=== PATIENT | male | born 1960 | race Two or more races ===

== ENCOUNTER 2018-05-09 22:15 | Inpatient (IN) | payer MEDICAID ==
--- NOTE | 2018-05-09 22:28 | ED Physician Chart ---
ED Chief Complaint/HPI - Patient Information Date Seen:: 05/09/18 Time Seen:: 22:22 Chief Complaint:: pneumonia History of Present Illness:: this is a 58 yo male who [facility] evaluation and treatment because he had a chest x-ray results of pneumonia with bilateral pleural effusions. Allergies:: Allergies Allergy/AdvReac Type Severity Reaction Status Date / Time No Known Allergies Allergy Verified 05/09/18 22:16 Vitals:: Vital Signs - 8 hr 05/09/18 22:17 Temp 98.4 F HR 56 RR 12 BP 132/63 O2 Sat % 95 Historian:: Patient, Medical Records Review:: Nurse's Note Reviewed, Transfer documents Reviewed ED Review of Systems - Review of Systems General/Constitutional: No fever, No chills, No weight loss, No weakness, No diaphoresis, No edema, No loss of appetite Skin: No skin lesions, No rash, No bruising Head: No headache, No light-headedness Eyes: No loss of vision, No pain, No diplopia ENT: No earache, No nasal drainage, No sore throat, No tinnitus Neck: No neck pain, No swelling, No thyromegaly, No stiffness, No mass noted Cardio Vascular: No chest pain, No palpitations, No PND, No orthopnea, No edema Pulmonary: SOB, No cough, Sputum, No wheezing GI: No nausea, No vomiting, No diarrhea, No pain, No melena, No hematochezia, No constipation, No hematemesis G/U: No dysuria, No frequency, No hematuria Musculoskeletal: No bone or joint pain, No back pain, No muscle pain Endocrine: No polyuria, No polydipsia Psychiatric: No prior psych history, No depression, No anxiety, No suicidal ideation Hematopoietic: No bruising, No lymphadenopathy Allergic/Immuno: No urticaria, No angioedema Neurological: No syncope, No focal symptoms, No weakness, No paresthesia, No headache, No seizure, No dizziness, No confusion, No vertigo ED Past Medical History - Past Medical History Obtainable: Yes Past Medical History: HTN, DM, ESRD Family History: None Social History: Non Smoker, No Alcohol, No Drug Use, Care Facility Surgical History: CABG, other (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) Psychiatricy History: None Medication: Reviewed Family Medical History - Family Member Mother History Unknown: Yes ED Physical Exam - Physical Examination General/Constitutional: Awake, Well-developed, well-nourished, Alert, No distress, GCS 15, Non-toxic appearing, Ambulatory Head: Atraumatic Eyes: Lids, conjuctiva normal, PERRL, EOMI Skin: Nl inspection, No rash, No skin lesions, No ecchymosis, Well hydrated, No lymphadenopathy ENMT: External ears, nose nl, Nasal exam nl, Lips, teeth, gums nl Neck: Nontender, Full ROM w/o pain, No JVD, No nuchal rigidity, No bruit, No mass, No stridor Respiratory: Nl effort/Exclusion, Clear to Auscultation Other Respiratory comments:: there are decreased breath sounds bilaterally Cardio Vascular: RRR, No murmur, gallop, rubs, NL S1 S2 Other Cardio Vascular comments:: there is a well healed cardiac surgery scare noted in the center of the chest GI: No tenderness/rebounding/guarding, No organomegaly, No hernia, Normal BS's, Nondistended, No mass/bruits, No McBurney tenderness : No CVA tenderness Extremities: No tenderness or effusion, Full ROM, normal strength in all extremities, No edema, Normal digits & nails Other Extremities comments:: the bka stump is well healed, the left foot stump is well healed also. Neuro/Psych: Alert/oriented, DTR's symmetric, Normal sensory exam, Normal motor strength, Judgement/insight normal, Mood normal, Normal gait, No focal deficits Misc: Normal back, No paraspinal tenderness ED Labs/Radiology/EKG Results - Lab Results Results: Abnormal Lab Results 05/09/18 05/09/18 05/09/18 22:40 22:40 22:40 WBC 6.3 RBC 2.96 L Hgb 9.5 L Hct 28.3 L MCV 95.8 MCH 32.0 H MCHC Differential 33.4 RDW 15.6 Plt Count 193 MPV 10.9 Neutrophils % 60.7 Lymphocytes % 18.6 L Monocytes % 10.3 H Eosinophils % 9.5 H Basophils % 0.9 PT 10.3 INR 0.99 PTT (Actin FS) 34.8 Specimen Source Sample Site pH pCO2 pO2 HCO3 Base Excess O2 Saturation Dago Test Vent Rate Inspired O2 Tidal Volume PEEP Pressure (ins/psv/peep) Critical Value Sodium 130 L Potassium 4.5 Chloride 92 L Carbon Dioxide 24.4 Anion Gap 18.1 H BUN 65 H Creatinine 9.9 H* Est GFR ( Amer) 7.0 Est GFR (Non-Af Amer) 5.8 BUN/Creatinine Ratio 6.6 Glucose 204 H Calcium 9.2 Total Bilirubin 0.4 AST 14 ALT 12 Alkaline Phosphatase 95 Troponin I B-Natriuretic Peptide Total Protein 7.8 Albumin 3.8 L Globulin 4.0 Albumin/Globulin Ratio 1.0 05/09/18 05/09/18 05/09/18 22:40 22:40 23:01 WBC RBC Hgb Hct MCV MCH MCHC Differential RDW Plt Count MPV Neutrophils % Lymphocytes % Monocytes % Eosinophils % Basophils % PT INR PTT (Actin FS) Specimen Source ARTERIAL Sample Site Right Radial pH 7.42 pCO2 43.0 pO2 62.0 L HCO3 27.1 H Base Excess 3.0 O2 Saturation 92.0 Dago Test Positive Vent Rate N/A Inspired O2 21 Tidal Volume N/A PEEP N/A Pressure (ins/psv/peep) N/A Critical Value MM,MARINE SPECIALIST Sodium Potassium Chloride Carbon Dioxide Anion Gap BUN Creatinine Est GFR ( Amer) Est GFR (Non-Af Amer) BUN/Creatinine Ratio Glucose Calcium Total Bilirubin AST ALT Alkaline Phosphatase Troponin I 0.96 H* B-Natriuretic Peptide 4390.0 H Total Protein Albumin Globulin Albumin/Globulin Ratio - EKG Interpretations EKG Time:: 22:39 Rate & Rhythm: RATE =55 SINUS [place]: RIGHT Comments:: NO ECTOPY ED Assessment - Assessment General Assessment: pneumonia ESRD CAD DIABETES MELLITUS ED Septic Shock - . Is Septic Shock (SBP<90, OR Lactate>4 mmol\L) present?: No - <6hrs of presentation: Vital Signs: Vital Signs - 8 hr 05/09/18 22:17 Temp 98.4 F HR 56 RR 12 BP 132/63 O2 Sat % 95 ED Reassessment (Disposition) - Reassessment Reassessment Condition:: Improved - Diagnosis Diagnosis:: PNEUMONIA ESRD DIABETES ELEVATED TROPONIN - Patient Disposition Discharge/Transfer:: Acute Care w/in this hosp Admitting Medical Physician:: Adilene Cordon Condition at Disposition:: Improved
[2018-05-09 22:50] LABS: % BASOPHILS 0.9 % (0.0-2.0); % EOSINOPHILS 9.5 % (0.0-5.0); % LYMPHOCYTES 18.6 % (20.0-50.0); % MONOCYTES 10.3 % (2.0-10.0); % NEUTROPHILS 60.7 % (40.0-80.0); BASOPHILE ABSOLUTE 0.1 Th/cumm (0-0.2); EOSINOPHILE ABSOLUTE 0.6 Th/cmm (0.1-0.4); HEMATOCRIT 28.3 % (41.0-60); HEMOGLOBIN 9.5 gm/dL (12-16); LYMPHOCYTE ABSOLUTE 1.2 Th/cmm (1.5-3.0); MEAN CELL VOLUME 95.8 fl (80-99); MEAN CORPUSCULAR HGB CONC 33.4 pg (28.0-36.0); MEAN PLATELET VOLUME 10.9 fl; MONOCYTE ABSOLUTE 0.6 Th/cmm (0.3-1.0); NEUTROPHILE ABSOLUTE 3.8 Th/cmm (1.8-8.0); PLATELET COUNT 193 Th/cmm (150-400); RED BLOOD COUNT 2.96 Mil/cmm (4.30-5.70); RED CELL DISTRIBUTION WIDTH 15.6 % (11.5-20.0); WHITE BLOOD COUNT 6.3 Th/cmm (4.8-10.8)
[2018-05-09 22:57] LABS: INR 0.99 (0.5-1.4); PROTHROMBIN TIME (TEST) 10.3 SECONDS (9.5-11.5)
[2018-05-09 23:03] LABS: ALBUMIN 3.8 gm/dL (4.2-5.5); ANION GAP 18.1 (7.0-16.0); BILIRUBIN,TOTAL 0.4 mg/dL (0.3-1.0); CALCIUM SERUM 9.2 mg/dL (8.6-10.3); CARBON DIOXIDE 24.4 mEq/L (21.0-31.0); GFR NON AFRICAN-AMERICAN 5.8 ml/min; POTASSIUM SERUM 4.5 mEq/L (3.5-5.1); TOTAL PROTEIN,SERUM 7.8 gm/dL (6.0-8.3)
[2018-05-09 23:14] LABS: ALLEN TEST Positive; pH 7.42 (7.35-7.45)
[2018-05-09 23:28] LABS: CREATININE - SERUM 9.9 mg/dL (0.7-1.3)
[2018-05-10] MEDS ORDERED: D5-0.9%NS 1,000 ML IV SCH (01:22)
[2018-05-10 01:24] VITALS: BP 139/70
[2018-05-10] MEDS: Azithromycin 500 MG in Sodium Chloride 0.9% 250 ML IV SCH ×2 (02:08→21:00)
[2018-05-10 06:26] LABS: % BASOPHILS 0.4 % (0.0-2.0); % LYMPHOCYTES 23.9 % (20.0-50.0); % MONOCYTES 11.1 % (2.0-10.0); % NEUTROPHILS 53.6 % (40.0-80.0); EOSINOPHILE ABSOLUTE 0.6 Th/cmm (0.1-0.4); HEMATOCRIT 27.7 % (41.0-60); HEMOGLOBIN 9.2 gm/dL (12-16); LYMPHOCYTE ABSOLUTE 1.3 Th/cmm (1.5-3.0); MEAN CELL VOLUME 96.3 fl (80-99); MEAN CORPUSCULAR HEMOGLOBIN 31.8 pg (26.0-30.0); MEAN CORPUSCULAR HGB CONC 33.1 pg (28.0-36.0); MEAN PLATELET VOLUME 10.5 fl; MONOCYTE ABSOLUTE 0.6 Th/cmm (0.3-1.0); NEUTROPHILE ABSOLUTE 3.1 Th/cmm (1.8-8.0); PLATELET COUNT 181 Th/cmm (150-400); RED BLOOD COUNT 2.87 Mil/cmm (4.30-5.70); RED CELL DISTRIBUTION WIDTH 15.1 % (11.5-20.0); WHITE BLOOD COUNT 5.6 Th/cmm (4.8-10.8)
[2018-05-10] MEDS: INSULIN ASPART SLIDING SCALE 100 UNITS/ML UNIT SUBQ SCH ×4 (06:44→21:41)
[2018-05-10 06:45] LABS: ANION GAP 15.8 (7.0-16.0); CALCIUM SERUM 9.1 mg/dL (8.6-10.3); CARBON DIOXIDE 25.3 mEq/L (21.0-31.0); GFR AFRICAN-AMERICAN 6.9 ml/min (>90); GFR NON AFRICAN-AMERICAN 5.7 ml/min; POTASSIUM SERUM 4.1 mEq/L (3.5-5.1)
[2018-05-10 06:50] LABS: CREATININE - SERUM 10.1 mg/dL (0.7-1.3)
[2018-05-10] MEDS ORDERED: Fluticasone Propionate Nasal 1 SPR SPR NS PRN (12:19)
[2018-05-10] MEDS ORDERED: Non-Formulary Item 1 EA (Dextran 70/Hypromellose [Artificial Tears] 1 EACH) OP PRN (12:19)
--- NOTE | 2018-05-10 16:00 | Consultation ---
Consult Note - Consult Note Service Date: 05/10/18 Referring Physician: Camilla Cordon Consult Note: PHYSICIAN Consultation Note: Date of Admission: 05/10/18 Purpose of Consultation: esrd Chief Complaint: shortness of breath History of Present Illness: Patient FARHAT FREGOSO was admitted to [facility] with PNEUMONIA,BILATERAL. Past Medical History: Hep B ESRD HTN DM Type 2 NEUROPATHY Allergies Allergy/AdvReac Type Severity Reaction Status Date / Time No Known Allergies Allergy Verified 05/09/18 22:16 Vital Signs Temp 96.6 F 05/10/18 15:44 Pulse 53 05/10/18 15:44 Resp 18 05/10/18 15:44 BP 119/59 05/10/18 15:44 Pulse Ox 100 05/10/18 15:44 Intake & Output 05/09/18 05/10/18 05/10/18 18:59 06:59 18:59 Intake Total 370 Balance 370 Weight (lbs) 59.466 kg Intake: Intake, IV Amount 250 Azithromycin 500 mg In 250 Sodium Chloride 0.9% 250 ml @ 250 mls/hr IV HS [facility] Rx#:[id number] Oral 120 Other: Weight Source [facility] Laboratory Results - last 24 hr 05/09/18 05/09/18 05/09/18 22:40 22:40 22:40 WBC 6.3 RBC 2.96 L Hgb 9.5 L Hct 28.3 L MCV 95.8 MCH 32.0 H MCHC Differential 33.4 RDW 15.6 Plt Count 193 MPV 10.9 Neutrophils % 60.7 Lymphocytes % 18.6 L Monocytes % 10.3 H Eosinophils % 9.5 H Basophils % 0.9 PT 10.3 INR 0.99 PTT (Actin FS) 34.8 Specimen Source Sample Site pH pCO2 pO2 HCO3 Base Excess O2 Saturation Dago Test Vent Rate Inspired O2 Tidal Volume PEEP Pressure (ins/psv/peep) Critical Value Sodium 130 L Potassium 4.5 Chloride 92 L Carbon Dioxide 24.4 Anion Gap 18.1 H BUN 65 H Creatinine 9.9 H* Est GFR ( Amer) 7.0 Est GFR (Non-Af Amer) 5.8 BUN/Creatinine Ratio 6.6 Glucose 204 H POC Glucose Calcium 9.2 Total Bilirubin 0.4 AST 14 ALT 12 Alkaline Phosphatase 95 Troponin I B-Natriuretic Peptide Total Protein 7.8 Albumin 3.8 L Globulin 4.0 Albumin/Globulin Ratio 1.0 05/09/18 05/09/18 05/09/18 22:40 22:40 23:01 WBC RBC Hgb Hct MCV MCH MCHC Differential RDW Plt Count MPV Neutrophils % Lymphocytes % Monocytes % Eosinophils % Basophils % PT INR PTT (Actin FS) Specimen Source ARTERIAL Sample Site Right Radial pH 7.42 pCO2 43.0 pO2 62.0 L HCO3 27.1 H Base Excess 3.0 O2 Saturation 92.0 Dago Test Positive Vent Rate N/A Inspired O2 21 Tidal Volume N/A PEEP N/A Pressure (ins/psv/peep) N/A Critical Value MM,STABLE HAND Sodium Potassium Chloride Carbon Dioxide Anion Gap BUN Creatinine Est GFR ( Amer) Est GFR (Non-Af Amer) BUN/Creatinine Ratio Glucose POC Glucose Calcium Total Bilirubin AST ALT Alkaline Phosphatase Troponin I 0.96 H* B-Natriuretic Peptide 4390.0 H Total Protein Albumin Globulin Albumin/Globulin Ratio 05/10/18 05/10/18 05/10/18 05:47 06:20 06:20 WBC 5.6 RBC 2.87 L Hgb 9.2 L Hct 27.7 L MCV 96.3 MCH 31.8 H MCHC Differential 33.1 RDW 15.1 Plt Count 181 MPV 10.5 Neutrophils % 53.6 Lymphocytes % 23.9 Monocytes % 11.1 H Eosinophils % 11.0 H Basophils % 0.4 PT INR PTT (Actin FS) Specimen Source Sample Site pH pCO2 pO2 HCO3 Base Excess O2 Saturation Dago Test Vent Rate Inspired O2 Tidal Volume PEEP Pressure (ins/psv/peep) Critical Value Sodium 132 L Potassium 4.1 Chloride 95 L Carbon Dioxide 25.3 Anion Gap 15.8 BUN 71 H Creatinine 10.1 H* Est GFR ( Amer) 6.9 Est GFR (Non-Af Amer) 5.7 BUN/Creatinine Ratio 7.0 Glucose 135 H POC Glucose 138 H Calcium 9.1 Total Bilirubin AST ALT Alkaline Phosphatase Troponin I B-Natriuretic Peptide Total Protein Albumin Globulin Albumin/Globulin Ratio 05/10/18 12:15 WBC RBC Hgb Hct MCV MCH MCHC Differential RDW Plt Count MPV Neutrophils % Lymphocytes % Monocytes % Eosinophils % Basophils % PT INR PTT (Actin FS) Specimen Source Sample Site pH pCO2 pO2 HCO3 Base Excess O2 Saturation Dago Test Vent Rate Inspired O2 Tidal Volume PEEP Pressure (ins/psv/peep) Critical Value Sodium Potassium Chloride Carbon Dioxide Anion Gap BUN Creatinine Est GFR ( Amer) Est GFR (Non-Af Amer) BUN/Creatinine Ratio Glucose POC Glucose 165 H Calcium Total Bilirubin AST ALT Alkaline Phosphatase Troponin I B-Natriuretic Peptide Total Protein Albumin Globulin Albumin/Globulin Ratio Home Medication Medication Instructions Recorded Type Amlodipine Besylate 10 mg PO DAILY 05/09/18 History Aspirin [Aspirin Chewable] 81 mg PO DAILY 05/09/18 History Calcium Acetate [Phoslo] 667 mg PO TID 05/09/18 History Dextran 70/Hypromellose 1 each OP Q4H PRN 05/09/18 History [Artificial Tears] Epoetin Leopoldo [Epogen*] 10,000 unit IJ MWF 05/09/18 History Famotidine 20 mg PO DAILY 05/09/18 History Fluticasone Propionate Nasal 1 spr NS BID PRN 05/09/18 History [Flonase] Folic Acid/Vit Bcomp,C 0.8 mg PO DAILY 05/09/18 History [Nephro-Devorah Tablet] Gabapentin [Neurontin*] 300 mg PO TID 05/09/18 History Hydralazine HCl 25 mg PO DAILY 05/09/18 History Insulin Human Regular [NovoLIN R] See Protocol SUBQ ACHS 05/09/18 History Latanoprost/Pf [Latanoprost 0.005% 1 drop EACH EYE HS 05/09/18 History Eye Drop] Metoprolol Tartrate [Lopressor] 25 mg PO BID 05/09/18 History Nitroglycerin [Nitrostat*] 0.4 mg SL [id number] PRN 05/09/18 History Simvastatin [Zocor*] 20 mg PO HS 05/09/18 History Current Medications Generic Name Dose Route Start Last Admin Trade Name Freq PRN Reason Stop Dose Admin Acetaminophen 650 mg 05/10/18 12:22 05/10/18 13:46 Tylenol PO 07/09/18 12:21 650 mg Q4H PRN Administration Pain (Mild) Amlodipine Besylate 10 mg 05/11/18 09:00 Norvasc PO 07/10/18 08:59 DAILY [facility] Aspirin 81 mg 05/11/18 09:00 Aspirin Chewable PO 07/10/18 08:59 DAILY [facility] Calcium Acetate 667 mg 05/10/18 14:00 05/10/18 13:46 Phoslo PO 07/09/18 13:59 667 mg TID [facility] Administration Epoetin Leopoldo 10,000 units 05/11/18 09:00 Epogen SUBQ 07/10/18 08:59 MWF [facility] Famotidine 20 mg 05/11/18 09:00 Pepcid PO 07/10/18 08:59 DAILY [facility] Fluticasone Propionate 1 spr 05/10/18 12:19 Flonase NS 07/09/18 12:18 BID PRN allergic rhinitis Gabapentin 300 mg 05/10/18 14:00 05/10/18 13:46 Neurontin PO 07/09/18 13:59 300 mg TID [facility] Administration Hydralazine HCl 25 mg 05/11/18 09:00 Apresoline PO 07/10/18 08:59 DAILY [facility] Azithromycin 500 mg/ Sodium 250 mls @ 250 mls/hr 05/10/18 02:00 05/10/18 03: 08 Chloride IV 07/09/18 01:59 Infused HS [facility] Infusion Insulin Aspart 0 units 05/10/18 16:30 Novolog Insulin Sliding Scale SUBQ 07/09/18 16:29 ACHS [facility] Protocol Metoprolol Tartrate 25 mg 05/10/18 17:00 Lopressor PO 07/09/18 16:59 BID [facility] Miscellaneous 1 each 05/10/18 12:19 Dextran 70/Hypromellose [Artificial Tears] OP Q4H PRN dry eyes Miscellaneous 1 drop 05/10/18 21:00 Latanoprost/Pf [Latanoprost 0.005% Eye Drop] EACH EYE 07/09/18 20:59 HS [facility] Nitroglycerin 0.4 mg 05/10/18 12:19 Nitrostat SL 07/09/18 12:18 UD PRN Chest Pain Simvastatin 20 mg 05/10/18 21:00 Zocor PO 07/09/18 20:59 HS [facility] Protocol Vitamin B Complex/Vit C/Folic Acid 1 tab 05/11/18 09:00 Vitamin B Complex W/Vitamin C PO 07/10/18 08:59 DAILY [facility] Review of Systems: A 12 point ROS was reviewed with the pertinent positive and negatives noted in the HPI. Social History Smoking Status Never smoker Drug Use No Alcohol Use No Family Medical History Family Medical History Start: 05/10/18 00: 39 Freq: ONCE Status: Active Protocol: Document 05/10/18 01:28 PAULO (Rec: 05/10/18 01:29 PAULO [id number]) Family Medical History Mother History Unknown Yes Ethnicity Physical Exam: General: AAOx3 HEENT: ANTONINO EOMI Neck: SUPPLE NO JVD Cardio: S1S2 RRR Respiratory: B/L RHONCHI Abdominal: SOFT NON TENDENR Extremities: B/L AMPUTATION OF FEET Neurological: NO FOCAL DEFICIT Assessment: B/L PNEUMONIA ESRD HEP B HTN DM TYPE 2 PVD ANEMIA NEUROPATHY Plan: IV ABX ESRD Signed, Eris Campos M.D. [id number]
[2018-05-10] MEDS: Albuterol/Ipratropium Neb 3 ML AERS HHN SCH (19:07)
[2018-05-10] MEDS ORDERED: Non-Formulary Item 1 EA (Latanoprost/Pf [Latanoprost 0.005% Eye Drop] 1 DROP) EACH EYE SCH (21:00)
[2018-05-11] MEDS ORDERED: Polyvinyl Alcohol Ophth Soln 15 mL Bottle EACH EYE PRN (00:18)
[2018-05-11 05:31] LABS: % BASOPHILS 0.3 % (0.0-2.0); % EOSINOPHILS 9.3 % (0.0-5.0); % LYMPHOCYTES 20.5 % (20.0-50.0); % NEUTROPHILS 55.9 % (40.0-80.0); EOSINOPHILE ABSOLUTE 0.4 Th/cmm (0.1-0.4); HEMATOCRIT 26.1 % (41.0-60); HEMOGLOBIN 8.6 gm/dL (12-16); LYMPHOCYTE ABSOLUTE 0.9 Th/cmm (1.5-3.0); MEAN CELL VOLUME 96.8 fl (80-99); MEAN CORPUSCULAR HEMOGLOBIN 31.7 pg (26.0-30.0); MEAN CORPUSCULAR HGB CONC 32.8 pg (28.0-36.0); MEAN PLATELET VOLUME 9.6 fl; MONOCYTE ABSOLUTE 0.6 Th/cmm (0.3-1.0); NEUTROPHILE ABSOLUTE 2.4 Th/cmm (1.8-8.0); PLATELET COUNT 177 Th/cmm (150-400); RED CELL DISTRIBUTION WIDTH 15.6 % (11.5-20.0); WHITE BLOOD COUNT 4.3 Th/cmm (4.8-10.8)
[2018-05-11 06:01] LABS: ALB/GLOB RATIO 1.1 (1.0-1.8); ALBUMIN 3.7 gm/dL (4.2-5.5); ANION GAP 11.3 (7.0-16.0); BILIRUBIN,TOTAL 0.5 mg/dL (0.3-1.0); CALCIUM SERUM 9.4 mg/dL (8.6-10.3); CARBON DIOXIDE 29.7 mEq/L (21.0-31.0); GFR AFRICAN-AMERICAN 11.4 ml/min (>90); GFR NON AFRICAN-AMERICAN 9.4 ml/min; TOTAL PROTEIN,SERUM 7.1 gm/dL (6.0-8.3)
[2018-05-11 06:11] LABS: CREATININE - SERUM 6.5 mg/dL (0.7-1.3)
[2018-05-11] MEDS: INSULIN ASPART SLIDING SCALE 100 UNITS/ML UNIT SUBQ SCH ×3 (06:39→18:03)
[2018-05-11] MEDS: Albuterol/Ipratropium Neb 3 ML AERS HHN SCH ×3 (06:58→19:08)
[2018-05-11] MEDS: Aspirin 81mg Chewable Tab PO SCH (08:52)
[2018-05-11] MEDS: Vitamin B Complex w/Vitamin C Tab PO SCH (08:52)
[2018-05-11] MEDS ORDERED: INSULIN ASPART SLIDING SCALE 100 UNITS/ML UNIT SUBQ SCH (09:00)
--- NOTE | 2018-05-11 10:11 | Diagnostic Imaging Report ---
CHEST X-RAY: AP view INDICATION: Shortness of breath COMPARISON: None FINDINGS: Congestive changes are seen with bilateral effusions and bibasal infiltrates. Cardiomegaly is noted. There is evidence of prior median sternotomy. Right dialysis catheter is noted with tip in the cavoatrial junction. Degenerative changes of the spine are noted. IMPRESSION: Congestive changes with bilateral effusions and bibasal infiltrates. Pneumonia of the lung bases cannot be excluded. Cardiomegaly and atherosclerotic vascular disease. Postsurgical changes and evidence of previous dialysis catheter placement.
--- NOTE | 2018-05-11 12:10 | General Progress Note ---
Subjective - Review of Systems Service Date: 05/11/18 Events since last encounter: s/p hd yesterday Subjective: HD in am Objective - Results Result Diagrams: 05/11/18 05:24 05/11/18 05:24 Recent Labs: Laboratory Last Values WBC 4.3 Th/cmm (4.8-10.8) L 05/11/18 05:24 RBC 2.70 Mil/cmm (4.30-5.70) L 05/11/18 05:24 Hgb 8.6 gm/dL (12-16) L 05/11/18 05:24 Hct 26.1 % (41.0-60) L 05/11/18 05:24 MCV 96.8 fl (80-99) 05/11/18 05:24 MCH 31.7 pg (26.0-30.0) H 05/11/18 05:24 MCHC Differential 32.8 pg (28.0-36.0) 05/11/18 05:24 RDW 15.6 % (11.5-20.0) 05/11/18 05:24 Plt Count 177 Th/cmm (150-400) 05/11/18 05:24 MPV 9.6 fl 05/11/18 05:24 Neutrophils % 55.9 % (40.0-80.0) 05/11/18 05:24 Lymphocytes % 20.5 % (20.0-50.0) 05/11/18 05:24 Monocytes % 14.0 % (2.0-10.0) H 05/11/18 05:24 Eosinophils % 9.3 % (0.0-5.0) H 05/11/18 05:24 Basophils % 0.3 % (0.0-2.0) 05/11/18 05:24 PT 10.3 SECONDS (9.5-11.5) 05/09/18 22:40 INR 0.99 (0.5-1.4) 05/09/18 22:40 PTT (Actin FS) 34.8 SECONDS (26.0-38.0) 05/09/18 22:40 Specimen Source ARTERIAL 05/09/18 23:01 Sample Site Right Radial 05/09/18 23:01 pH 7.42 (7.35-7.45) 05/09/18 23:01 pCO2 43.0 mmHg (35.0-45.0) 05/09/18 23:01 pO2 62.0 mmHg (80.0-100.0) L 05/09/18 23:01 HCO3 27.1 mEq/L (20.0-26.0) H 05/09/18 23:01 Base Excess 3.0 mEq/L (-3.0-3.0) 05/09/18 23:01 O2 Saturation 92.0 % (92.0-100.0) 05/09/18 23: Dago Test Positive 05/09/18 23: Vent Rate N/A 05/09/18 23:01 Inspired O2 21 05/09/18 23:01 Tidal Volume N/A 05/09/18 23:01 PEEP N/A 05/09/18 23: Pressure (ins/psv/peep) N/A 05/09/18 23:01 Critical Value MM,MONTESSORI [employer] 05/09/18 23:01 Sodium 136 mEq/L (136-145) 05/11/18 05:24 Potassium 4.0 mEq/L (3.5-5.1) 05/11/18 05:24 Chloride 99 mEq/L (98-107) 05/11/18 05:24 Carbon Dioxide 29.7 mEq/L (21.0-31.0) 05/11/18 05:24 Anion Gap 11.3 (7.0-16.0) 05/11/18 05:24 BUN 34 mg/dL (7-25) H 05/11/18 05:24 Creatinine 6.5 mg/dL (0.7-1.3) H* 05/11/18 05:24 Est GFR ( Amer) 11.4 ml/min (>90) 05/11/18 05:24 Est GFR (Non-Af Amer) 9.4 ml/min 05/11/18 05:24 BUN/Creatinine Ratio 5.2 05/11/18 05:24 Glucose 112 mg/dL (70-105) H 05/11/18 05:24 POC Glucose 226 MG/DL (70 - 105) H 05/10/18 21:39 Calcium 9.4 mg/dL (8.6-10.3) 05/11/18 05:24 Total Bilirubin 0.5 mg/dL (0.3-1.0) 05/11/18 05:24 AST 12 U/L (13-39) L 05/11/18 05:24 ALT 10 U/L (7-52) 05/11/18 05:24 Alkaline Phosphatase 75 U/L (34-104) 05/11/18 05:24 Troponin I 0.59 ng/mL (0.01-0.05) H* D 05/11/18 05:24 B-Natriuretic Peptide 4390.0 pg/mL (5.0-100.0) H 05/09/18 22:40 Total Protein 7.1 gm/dL (6.0-8.3) 05/11/18 05:24 Albumin 3.7 gm/dL (4.2-5.5) L 05/11/18 05:24 Globulin 3.4 gm/dL 05/11/18 05:24 Albumin/Globulin Ratio 1.1 (1.0-1.8) 05/11/18 05:24 - Physical Exam Vitals and I&O: Vital Signs Temp 97.7 F 05/11/18 11:52 Pulse 87 05/11/18 11:52 Resp 18 05/11/18 11:52 BP 124/65 05/11/18 11:52 Pulse Ox 100 05/11/18 11:52 Intake & Output 05/10/18 05/11/18 05/11/18 18:59 06:59 18:59 Intake Total 150 370 Balance 150 370 Weight (lbs) 59.421 kg 59.421 kg Intake: Intake, IV Amount 250 Azithromycin 500 mg In 250 Sodium Chloride 0.9% 250 ml @ 250 mls/hr IV HS [facility] Rx#:[id number] Oral 150 120 Other: # Voids 0 # Bowel Movements 0 Weight Source Bedscale Bedscale Active Medications: Current Medications Acetaminophen (Tylenol) 650 mg PO Q4H PRN PRN Reason: Pain (Mild) Stop: 07/09/18 12:21 Last Admin: 05/11/18 09:10 Dose: 650 mg Acetaminophen/Hydrocodone Bitart (Hannibal 5mg/325mg) 1 tab PO Q6H PRN PRN Reason: Pain (Severe) Stop: 07/10/18 11:55 Albuterol/Ipratropium (Duoneb Neb) 3 ml HHN [id number] [facility] Stop: 07/09/18 18:59 Last Admin: 05/11/18 06:58 Dose: 3 ml Amlodipine Besylate (Norvasc) 10 mg PO DAILY [facility] Stop: 07/10/18 08:59 Last Admin: 05/11/18 08:52 Dose: 10 mg Artificial Tears (Artificial Tears Ophth Soln) 1 drop EACH EYE Q4H PRN PRN Reason: Dry Eye Stop: 07/10/18 00:17 Aspirin (Aspirin Chewable) 81 mg PO DAILY [facility] Stop: 07/10/18 08:59 Last Admin: 05/11/18 08:52 Dose: 81 mg Calcium Acetate (Phoslo) 667 mg PO TID [facility] Stop: 07/09/18 13:59 Last Admin: 05/11/18 08:52 Dose: 667 mg Epoetin Leopoldo (Epogen) 10,000 units SUBQ MWF@1500 [facility] Stop: 07/10/18 14:59 Epoetin Leopoldo (Epogen) 10,000 units SUBQ MWF@1500 [facility] Stop: 07/12/18 14:59 Famotidine (Pepcid) 20 mg PO DAILY [facility] Stop: 07/10/18 08:59 Last Admin: 05/11/18 08:52 Dose: 20 mg Fluticasone Propionate (Flonase) 1 spr NS BID PRN PRN Reason: allergic rhinitis Stop: 07/09/18 12:18 Gabapentin (Neurontin) 300 mg PO TID [facility] Stop: 07/09/18 13:59 Last Admin: 05/11/18 08:52 Dose: 300 mg Hydralazine HCl (Apresoline) 25 mg PO DAILY [facility] Stop: 07/10/18 08:59 Last Admin: 05/11/18 08:52 Dose: 25 mg Azithromycin 500 mg/ Sodium (Chloride) 250 mls @ 250 mls/hr IV HS [facility] Stop: 07/09/18 01:59 Last Infusion: 05/10/18 22:00 Dose: Infused Insulin Aspart (Novolog Insulin Sliding Scale) 0 units SUBQ BIDAC@0600,1700 [facility] ; Protocol Stop: 07/10/18 08:59 Last Admin: 05/11/18 08:51 Dose: Not Given Latanoprost (Xalatan 0.005% Ophth Soln) 1 drop EACH EYE HS [facility] Stop: 07/10/18 20:59 Metoprolol Tartrate (Lopressor) 25 mg PO BID [facility] Stop: 07/09/18 16:59 Last Admin: 05/11/18 08:53 Dose: 25 mg Nitroglycerin (Nitrostat) 0.4 mg SL UD PRN PRN Reason: Chest Pain Stop: 07/09/18 12:18 Simvastatin (Zocor) 20 mg PO HS [facility]; Protocol Stop: 07/09/18 20:59 Last Admin: 05/10/18 20:59 Dose: 20 mg Vitamin B Complex/Vit C/Folic Acid (Vitamin B Complex W/Vitamin C) 1 tab PO DAILY [facility] Stop: 07/10/18 08:59 Last Admin: 05/11/18 08:52 Dose: 1 tab General: Alert, Oriented x3 HEENT: Atraumatic, PERRLA Neck: Supple Cardiovascular: Regular rate, Normal S1, Normal S2 Lungs: Other Abdomen: Bowel sounds, Soft Extremities: no Clubbing, no Cyanosis, no Edema, no Pulses, no Tender, no Other Assessment/Plan - Assessment Assessment: shortness of breath ESRD volume over load HTN DM type 2 Anemia - Plan Plan: plan for HD in am
[2018-05-11] MEDS: Hydrocodone/APAP 5mg/325mg Tab PO PRN ×2 (12:30→21:16)
[2018-05-11] MEDS ORDERED: Epoetin Alfa 20000 Units/mL Vial SUBQ SCH (15:00)
--- NOTE | 2018-05-11 15:03 | Consultation ---
DATE OF CONSULTATION: 05/10/2018 Thank you very much, Dr. Cordon for this consultation. HISTORY OF PRESENT ILLNESS: This 58-year-old male with history of end-stage renal disease, peripheral vascular disease, presented with pneumonia. Apparently, had a chest x-ray, shows infiltrates, was admitted for treatment and management. The patient is having some cough and congestion, but no shortness of breath, no chest pain. PAST MEDICAL HISTORY: History of end-stage renal disease, on dialysis; hypertension, neuropathy, diabetes mellitus, bilateral amputation left below knee, right above knee. SOCIAL HISTORY: No history of smoking, drinking, drug use. REVIEW OF SYSTEMS: GENERAL: No weakness, no fatigue. CARDIOVASCULAR: No chest pain or palpitations. RESPIRATORY: Some cough. No shortness of breath. GASTROINTESTINAL: No nausea or vomiting. PHYSICAL EXAMINATION: GENERAL: Awake, alert, not in acute distress. VITAL SIGNS: Temperature 96.6, pulse 53, respiration is 18, blood pressure 119/59, saturation is 100%. HEENT: Atraumatic, normocephalic. Pupils react to light and accommodation. Ears, nose and throat normal. NECK: Supple. No JVD. CHEST: There are a few rhonchi in bases: Fair entry bilaterally. HEART: Regular rate and rhythm. ABDOMEN: Soft. EXTREMITIES: No edema. LABORATORY DATA: WBC is 5.6, hemoglobin 9.2, hematocrit 27.7, platelets 181. ABGs: pH 7.742, pCO2 of 43, pO2 of 62, bicarbonate 27, saturation 93%. Sodium 130, potassium 4.1, BUN is 71, creatinine 10.1. Troponin was 0.96. BNP is 4390. Chest x-ray apparently from the nursing was showing bilateral effusion and infiltrate. IMPRESSION: This is a 58-year-old male with; 1. Pneumonia. 2. Pulmonary edema with bilateral effusion secondary to fluid overload. 3. End-stage renal disease, on dialysis. PLAN: 1. We will continue IV antibiotics. 2. Oxygen supplementation. 3. Nebulizer treatment. 4. Hemodialysis and followup chest x-ray. I will follow the patient with you. Thank you very much for this consultation. JOB# [id number]
[2018-05-11] MEDS: cefTRIAXone 1 GM in Sodium Chloride 0.9% 50 ML IV SCH (17:39)
[2018-05-11] MEDS: Azithromycin 500 MG in Sodium Chloride 0.9% 250 ML IV SCH (21:12)
[2018-05-12] MEDS: INSULIN ASPART SLIDING SCALE 100 UNITS/ML UNIT SUBQ SCH ×2 (06:39→17:11)
[2018-05-12] MEDS: Albuterol/Ipratropium Neb 3 ML AERS HHN SCH ×3 (07:31→19:01)
--- NOTE | 2018-05-12 08:51 | General Progress Note ---
Subjective - Review of Systems Service Date: 05/12/18 Subjective: pt feeling ok Objective - Results Result Diagrams: 05/11/18 05:24 05/11/18 05:24 Recent Labs: Laboratory Last Values WBC 4.3 Th/cmm (4.8-10.8) L 05/11/18 05:24 RBC 2.70 Mil/cmm (4.30-5.70) L 05/11/18 05:24 Hgb 8.6 gm/dL (12-16) L 05/11/18 05:24 Hct 26.1 % (41.0-60) L 05/11/18 05:24 MCV 96.8 fl (80-99) 05/11/18 05:24 MCH 31.7 pg (26.0-30.0) H 05/11/18 05:24 MCHC Differential 32.8 pg (28.0-36.0) 05/11/18 05:24 RDW 15.6 % (11.5-20.0) 05/11/18 05:24 Plt Count 177 Th/cmm (150-400) 05/11/18 05:24 MPV 9.6 fl 05/11/18 05:24 Neutrophils % 55.9 % (40.0-80.0) 05/11/18 05:24 Lymphocytes % 20.5 % (20.0-50.0) 05/11/18 05:24 Monocytes % 14.0 % (2.0-10.0) H 05/11/18 05:24 Eosinophils % 9.3 % (0.0-5.0) H 05/11/18 05:24 Basophils % 0.3 % (0.0-2.0) 05/11/18 05:24 PT 10.3 SECONDS (9.5-11.5) 05/09/18 22:40 INR 0.99 (0.5-1.4) 05/09/18 22:40 PTT (Actin FS) 34.8 SECONDS (26.0-38.0) 05/09/18 22:40 Specimen Source ARTERIAL 05/09/18 23:01 Sample Site Right Radial 05/09/18 23:01 pH 7.42 (7.35-7.45) 05/09/18 23:01 pCO2 43.0 mmHg (35.0-45.0) 05/09/18 23:01 pO2 62.0 mmHg (80.0-100.0) L 05/09/18 23:01 HCO3 27.1 mEq/L (20.0-26.0) H 05/09/18 23:01 Base Excess 3.0 mEq/L (-3.0-3.0) 05/09/18 23:01 O2 Saturation 92.0 % (92.0-100.0) 05/09/18 23:01 Dago Test Positive 05/09/18 23: Vent Rate N/A 05/09/18 23: Inspired O2 21 05/09/18 23:01 Tidal Volume N/A 05/09/18 23:01 PEEP N/A 05/09/18 23: Pressure (ins/psv/peep) N/A 05/09/18 23: Critical Value MM,[employer] 05/09/18 23:01 Sodium 136 mEq/L (136-145) 05/11/18 05:24 Potassium 4.0 mEq/L (3.5-5.1) 05/11/18 05:24 Chloride 99 mEq/L (98-107) 05/11/18 05:24 Carbon Dioxide 29.7 mEq/L (21.0-31.0) 05/11/18 05:24 Anion Gap 11.3 (7.0-16.0) 05/11/18 05:24 BUN 34 mg/dL (7-25) H 05/11/18 05:24 Creatinine 6.5 mg/dL (0.7-1.3) H* 05/11/18 05:24 Est GFR ( Amer) 11.4 ml/min (>90) 05/11/18 05:24 Est GFR (Non-Af Amer) 9.4 ml/min 05/11/18 05:24 BUN/Creatinine Ratio 5.2 05/11/18 05:24 Glucose 112 mg/dL (70-105) H 05/11/18 05:24 POC Glucose 99 MG/DL (70 - 105) 05/12/18 06:32 Calcium 9.4 mg/dL (8.6-10.3) 05/11/18 05:24 Total Bilirubin 0.5 mg/dL (0.3-1.0) 05/11/18 05:24 AST 12 U/L (13-39) L 05/11/18 05:24 ALT 10 U/L (7-52) 05/11/18 05:24 Alkaline Phosphatase 75 U/L (34-104) 05/11/18 05:24 Troponin I 0.59 ng/mL (0.01-0.05) H* D 05/11/18 05:24 B-Natriuretic Peptide 4390.0 pg/mL (5.0-100.0) H 05/09/18 22:40 Total Protein 7.1 gm/dL (6.0-8.3) 05/11/18 05:24 Albumin 3.7 gm/dL (4.2-5.5) L 05/11/18 05:24 Globulin 3.4 gm/dL 05/11/18 05:24 Albumin/Globulin Ratio 1.1 (1.0-1.8) 05/11/18 05:24 - Physical Exam Vitals and I&O: Vital Signs Temp 98 F 05/12/18 04:00 Pulse 60 05/12/18 07:36 Resp 18 05/12/18 07:36 BP 111/63 05/12/18 04:00 Pulse Ox 96 05/12/18 07:36 Intake & Output 05/11/18 05/12/18 05/12/18 18:59 06:59 18:59 Intake Total 920 Balance 920 Weight (lbs) 59.421 kg 60.419 kg Intake: Intake, IV Amount 50 cefTRIAXone 1 gm In 50 Sodium Chloride 0.9% 50 ml @ 100 mls/hr IV Q24HR [facility] Rx#:[id number] Oral 870 Other: # Voids 1 # Bowel Movements 0 Weight Source Bedscale Bedscale Active Medications: Current Medications Acetaminophen (Tylenol) 650 mg PO Q4H PRN PRN Reason: Pain (Mild) Stop: 07/09/18 12:21 Last Admin: 05/11/18 09:10 Dose: 650 mg Acetaminophen/Hydrocodone Bitart (Liberty 5mg/325mg) 1 tab PO Q6H PRN PRN Reason: Pain (Severe) Stop: 07/10/18 11:55 Last Admin: 05/11/18 21:16 Dose: 1 tab Albuterol/Ipratropium (Duoneb Neb) 3 ml HHN [id number] [facility] Stop: 07/09/18 18:59 Last Admin: 05/12/18 07:31 Dose: 3 ml Amlodipine Besylate (Norvasc) 10 mg PO DAILY [facility] Stop: 07/10/18 08:59 Last Admin: 05/11/18 08:52 Dose: 10 mg Artificial Tears (Artificial Tears Ophth Soln) 1 drop EACH EYE Q4H PRN PRN Reason: Dry Eye Stop: 07/10/18 00:17 Aspirin (Aspirin Chewable) 81 mg PO DAILY [facility] Stop: 07/10/18 08:59 Last Admin: 05/11/18 08:52 Dose: 81 mg Calcium Acetate (Phoslo) 667 mg PO TID [facility] Stop: 07/09/18 13:59 Last Admin: 05/11/18 21:16 Dose: 667 mg Epoetin Leopoldo (Epogen) 10,000 units SUBQ MWF@1500 [facility] Stop: 07/12/18 14:59 Famotidine (Pepcid) 20 mg PO DAILY [facility] Stop: 07/10/18 08:59 Last Admin: 05/11/18 08:52 Dose: 20 mg Fluticasone Propionate (Flonase) 1 spr NS BID PRN PRN Reason: allergic rhinitis Stop: 07/09/18 12:18 Gabapentin (Neurontin) 300 mg PO TID [facility] Stop: 07/09/18 13:59 Last Admin: 05/11/18 21:16 Dose: 300 mg Hydralazine HCl (Apresoline) 25 mg PO DAILY [facility] Stop: 07/10/18 08:59 Last Admin: 05/11/18 08:52 Dose: 25 mg Azithromycin 500 mg/ Sodium (Chloride) 250 mls @ 250 mls/hr IV HS [facility] Stop: 07/09/18 01:59 Last Admin: 05/11/18 21:12 Dose: 250 mls/hr Ceftriaxone Sodium 1 gm/ (Sodium Chloride) 50 mls @ 100 mls/hr IV Q24HR [facility] Stop: 07/10/18 15:59 Last Infusion: 05/11/18 18:09 Dose: Infused Insulin Aspart (Novolog Insulin Sliding Scale) 0 units SUBQ BIDAC@0600,1700 [facility] ; Protocol Stop: 07/10/18 08:59 Last Admin: 05/12/18 06:39 Dose: Not Given Latanoprost (Xalatan 0.005% Ophth Soln) 1 drop EACH EYE HS [facility] Stop: 07/10/18 20:59 Last Admin: 05/11/18 21:16 Dose: 1 drop Metoprolol Tartrate (Lopressor) 25 mg PO BID [facility] Stop: 07/09/18 16:59 Last Admin: 05/11/18 17:39 Dose: 25 mg Nitroglycerin (Nitrostat) 0.4 mg SL UD PRN PRN Reason: Chest Pain Stop: 07/09/18 12:18 Simvastatin (Zocor) 20 mg PO HS [facility]; Protocol Stop: 07/09/18 20:59 Last Admin: 05/11/18 21:16 Dose: 20 mg Vitamin B Complex/Vit C/Folic Acid (Vitamin B Complex W/Vitamin C) 1 tab PO DAILY [facility] Stop: 07/10/18 08:59 Last Admin: 05/11/18 08:52 Dose: 1 tab General: Alert, Oriented x3 HEENT: Atraumatic, PERRLA Neck: Supple Cardiovascular: Regular rate, Normal S1, Normal S2 Lungs: Other Abdomen: Bowel sounds, Soft Extremities: no Clubbing, no Cyanosis, no Edema, no Pulses, no Tender, no Other Assessment/Plan - Assessment Assessment: shortness of breath ESRD volume over load HTN DM type 2 Anemia - Plan Plan: plan for HD Nutritional Asmnt/Malnutr-PDOC - Dietary Evaluation Malnutrition Findings (Please click <Entered> for more info): Nutritional Asmnt/Malnutrition Start: 05/11/18 14: 11 Text: Status: Complete Freq: Protocol: Document 05/11/18 14:11 MARYG (Rec: 05/11/18 14:40 ДМИТРИЙ [id number]) Nutritional Asmnt/Malnutrition Patient General Information Nutritional Screening High Risk Consult Diagnosis PNA, bilateral Pertinent Medical Hx/Surgical Hx HTn, DM, ESRD, CABG, L foot amputation, right BKA Subjective Information Consult received for elevated glucose level. Pt seen lying in bed, alert, on oxygen. Pt speaks Canadian, some Frisian. Pt stated he prefer small meals, the lunch portion was too much for him. Explained pt needs more protein d/t on dialysis. Offered Nepro to pt for extra kcal/protein, pt accepted. per EMR, PO itnake 50-75%. Current Diet Order/ Nutrition Support low sodium, Renal, CCHO Pertinent Medications novolog, vitamin B complex/vit C/folic acid Pertinent Labs 05/11 BUN 34, Cr 6.5, glucose 112 05/10 Na 132, Cl 95, BUN 71, Cr 10.1, glucose 135, POC 165- 226 Nutritional Hx/Data Height 1.65 m Height (Calculated Centimeters) 165.1 Current Weight (lbs) 59.421 kg Weight (Calculated Kilograms) 59.4 Weight (Calculated Grams) 97251.6 [place] Body Weight 131 Body Mass Index (BMI) 21.8 Weight Status Approriate GI Symptoms GI Symptoms None Last BM none Difficult in: None Skin Integrity/Comment: intact Current %PO Fair (50-74%) Estimated Nutritional Goals BEE in Kcals: Using Current wt Calories/Kcals/Kg 30-35 Kcals Calculated 0593-8385 Protein: Using Current wt Protein g/k.2-1.4 Protein Calculated 72-84 Fluid: ml per MD Nutritional Problem 1. Problem Problem increased nutrition needs ( calorie and protein) Etiology ESRD Signs/Symptoms: pt on hemodialysis Malnutrition Alert Is there a minimum of two criteria No selected? Query Text:Check all the applicable criteria. A minimum of two criteria are recommended for diagnosis of either severe or non-severe malnutrition. Intervention/Recommendation Comments 1. Continue with renal and CCHO diet as ordered. Diet profile updated. 2. Add Nepro TID for extra kcal and protein. 3. Monitor PO intake, wt, labs and skin integrity 4. F/U as high risk in 2-3 days, 05/13-05/14 Expected Outcomes/Goals Expected Outcomes/Goals 1. PO intake to meet at least 75% of nutritional needs with oral diet and supplement. 2. Wt stability, skin to remain intact, labs to approach WNL.
[2018-05-12] MEDS: Aspirin 81mg Chewable Tab PO SCH (09:05)
[2018-05-12] MEDS: Vitamin B Complex w/Vitamin C Tab PO SCH (09:05)
[2018-05-12 09:09] LABS: % BASOPHILS 0.7 % (0.0-2.0); % LYMPHOCYTES 19.6 % (20.0-50.0); % MONOCYTES 9.1 % (2.0-10.0); % NEUTROPHILS 55.6 % (40.0-80.0); HEMATOCRIT 26.9 % (41.0-60); HEMOGLOBIN 9.2 gm/dL (12-16); LYMPHOCYTE ABSOLUTE 1.3 Th/cmm (1.5-3.0); MEAN CORPUSCULAR HEMOGLOBIN 32.9 pg (26.0-30.0); MEAN CORPUSCULAR HGB CONC 34.3 pg (28.0-36.0); MEAN PLATELET VOLUME 9.8 fl; MONOCYTE ABSOLUTE 0.6 Th/cmm (0.3-1.0); NEUTROPHILE ABSOLUTE 3.7 Th/cmm (1.8-8.0); PLATELET COUNT 181 Th/cmm (150-400); RED CELL DISTRIBUTION WIDTH 15.7 % (11.5-20.0); WHITE BLOOD COUNT 6.6 Th/cmm (4.8-10.8)
[2018-05-12] MEDS: Hydrocodone/APAP 5mg/325mg Tab PO PRN ×2 (09:11→20:48)
[2018-05-12 09:31] LABS: ANION GAP 16.5 (7.0-16.0); CALCIUM SERUM 9.6 mg/dL (8.6-10.3); CARBON DIOXIDE 26.6 mEq/L (21.0-31.0); GFR AFRICAN-AMERICAN 9.1 ml/min (>90); GFR NON AFRICAN-AMERICAN 7.5 ml/min; POTASSIUM SERUM 4.1 mEq/L (3.5-5.1)
[2018-05-12] MEDS: Promethazine DM 6.25/15mg-5mL 5 ML SYR PO SCH ×4 (09:31→22:52)
[2018-05-12 09:35] LABS: CREATININE - SERUM 7.9 mg/dL (0.7-1.3)
--- NOTE | 2018-05-12 11:03 | Consultation ---
DATE OF CONSULTATION: 05/10/[address] Cordon. HISTORY AND PHYSICAL: This is 58-year-old male patient who came to the Emergency Room complaining of shortness of breath. The patient was found to have bilateral pneumonia. The patient is admitted. During hospital stay, the patient also had slightly elevated troponin level and hence Cardiology consult was requested. PAST MEDICAL HISTORY: Diabetes mellitus type 2; diabetic CKD stage 5; end-stage renal disease, on dialysis; hepatitis B; hypertension; iron-deficiency anemia. FAMILY HISTORY: Unremarkable. SOCIAL HISTORY: No history of smoking, alcohol abuse. ALLERGIES: No known allergies. PHYSICAL EXAMINATION: VITAL SIGNS: Blood pressure 130/80, pulse 70, respirations 20. HEAD: Normocephalic. No lumps or bumps. EYES: Pupils equal, reactive to light. Fundi show AV nicking, sclerae white, conjunctivae pink. NECK: Carotid 2+. Normal upstroke. JVD flat. Thyroid not palpable. Lymph nodes not palpable. CHEST: Shows increased AP diameter. No kyphosis, scoliosis. LUNGS: Bilateral bronchovesicular breath sounds. Bilateral wheezing, rhonchi, prolonged expiration. HEART: PMI fifth intercostal space with lateral to midclavicular line. S1, S2, S3, S4. Systolic murmur, grade 2/6, lower left sternal border without radiation. ABDOMEN: Soft. Liver, spleen not palpable. No splenomegaly. Bowel sounds active. NEUROLOGIC: No focal neurological deficit. EXTREMITIES: Peripheral pulses 2+. No pedal edema. CLINICAL IMPRESSION: Bilateral pneumonia; hepatitis B; diabetes mellitus type 2; diabetic chronic kidney disease stage 5; end-stage renal disease, on dialysis; hypertension; iron-deficiency anemia. PLAN: The patient to continue present care, IV antibiotics, troponin level is elevated secondary to chronic kidney disease stage 5. The patient to get an echocardiogram. JOB# [id number]
--- NOTE | 2018-05-12 12:02 | History and Physical ---
History of Present Illness - HPI Chief Complaint: pneumonia HPI: This is a 58-year old male who is a skilled nursing resident admitted to the medsurg unit due to chest xray taken at [facility] showed pneumonia. no reports of any fevers at the snf. Vital Signs: Last Vital Signs Temp 98.6 F 05/12/18 08:00 Pulse 63 05/12/18 09:06 Resp 17 05/12/18 08:00 BP 132/64 05/12/18 09:06 Pulse Ox 100 05/12/18 08:00 Past Medical History Other History: HTN, DM, ESRD Family Medical History - Family Member Mother History Unknown: Yes Ethnicity: Social History Smoke: No Alcohol: None Drugs: None Lives: Usp - Medications Home Medications: Home Medication Medication Instructions Recorded Type Amlodipine Besylate 10 mg PO DAILY 05/09/18 History Aspirin [Aspirin Chewable] 81 mg PO DAILY 05/09/18 History Calcium Acetate [Phoslo] 667 mg PO TID 05/09/18 History Dextran 70/Hypromellose 1 each OP Q4H PRN 05/09/18 History [Artificial Tears] Epoetin Leopoldo [Epogen*] 10,000 unit IJ MWF 05/09/18 History Famotidine 20 mg PO DAILY 05/09/18 History Fluticasone Propionate Nasal 1 spr NS BID PRN 05/09/18 History [Flonase] Folic Acid/Vit Bcomp,C 0.8 mg PO DAILY 05/09/18 History [Nephro-Devorah Tablet] Gabapentin [Neurontin*] 300 mg PO TID 05/09/18 History Hydralazine HCl 25 mg PO DAILY 05/09/18 History Insulin Human Regular [NovoLIN R] See Protocol SUBQ ACHS 05/09/18 History Latanoprost/Pf [Latanoprost 0.005% 1 drop EACH EYE HS 05/09/18 History Eye Drop] Metoprolol Tartrate [Lopressor] 25 mg PO BID 05/09/18 History Nitroglycerin [Nitrostat*] 0.4 mg SL [id number] PRN 05/09/18 History Simvastatin [Zocor*] 20 mg PO HS 05/09/18 History - Allergies Allergies/Adverse Reactions: Allergies Allergy/AdvReac Type Severity Reaction Status Date / Time No Known Allergies Allergy Verified 05/09/18 22:16 Review of Systems - Review of Systems Constitutional: Report: Weakness Eyes: Report: No Significant Respiratory: Report: Cough Cardiovascular: Report: No Significant Neurological: Report: Weakness Physical Exam - Physical Exam HEENT: Report: Ears Nose Throat within normal limits Neck: Report: Within normal limits Cardiovascular Systems: Report: +s1/s2 noted, Regular, Rate and Rhythm Respiratory: Report: Rhonchi Extremities: Report: Non-tender to palpation. Skin: Report: Color of skin is within normal limits, Warm, Dry Neuro/Psych: Report: Mood affect is within normal limits - Lab Results All Lab Results last 24 hours: Laboratory Results - last 24 hr 05/11/18 05/12/18 05/12/18 17:42 06:32 09:06 WBC 6.6 RBC 2.80 L Hgb 9.2 L Hct 26.9 L MCV 96.0 MCH 32.9 H MCHC Differential 34.3 RDW 15.7 Plt Count 181 MPV 9.8 Neutrophils % 55.6 Lymphocytes % 19.6 L Monocytes % 9.1 Eosinophils % 15.0 H Basophils % 0.7 Sodium Potassium Chloride Carbon Dioxide Anion Gap BUN Creatinine Est GFR ( Amer) Est GFR (Non-Af Amer) BUN/Creatinine Ratio Glucose POC Glucose 186 H 99 Calcium 05/12/18 09:06 WBC RBC Hgb Hct MCV MCH MCHC Differential RDW Plt Count MPV Neutrophils % Lymphocytes % Monocytes % Eosinophils % Basophils % Sodium 135 L Potassium 4.1 Chloride 96 L Carbon Dioxide 26.6 Anion Gap 16.5 H BUN 45 H Creatinine 7.9 H* Est GFR ( Amer) 9.1 Est GFR (Non-Af Amer) 7.5 BUN/Creatinine Ratio 5.7 Glucose 133 H POC Glucose Calcium 9.6 Microbiology 05/09/18 22:45 - Preliminary Blood NO GROWTH AFTER 48 HOURS 05/09/18 23:00 - Preliminary Blood NO GROWTH AFTER 48 HOURS 05/09/18 22:30 - Final Nares NO MRSA ISOLATED - Assessment Assessment: pneumonia HTN DM ESRD - Plan Plan: continue ivabx as per id follow up labs in am supplemental oxygen as needed continue current plan of care
[2018-05-12] MEDS ORDERED: Epoetin Alfa 20000 Units/mL Vial SUBQ ONE (16:00)
[2018-05-12] MEDS: cefTRIAXone 1 GM in Sodium Chloride 0.9% 50 ML IV SCH (17:04)
--- NOTE | 2018-05-12 17:22 | Cardiology ---
05/11/[address] Cordon. M-MODE ECHOCARDIOGRAM: Mitral valve, anterior leaflet of mitral valve shows normal excursion, EF velocity. Posterior leaflet of the mitral valve shows normal excursion. Left ventricle posterior showed increased thickness, normal excursion. Interventricular septum shows increased thickness, normal excursion, hypertrophy of the left ventricle, ejection fraction 50%. Left atrium enlarged 4.2 cm. Aortic root shows normal dimension, normal excursion of aortic leaflets. CONCLUSION: Hypertrophy of the left ventricle, ejection fraction 50%. 2D ECHO: Long axis view showed normal sized left ventricle with hypertrophy of the left ventricle. Left atrium normal. Aortic root shows normal dimension, normal excursion of aortic leaflets. Short axis view of mitral valve normal. Short axis view of aortic valve normal. Apical four chamber view showed normal sized left ventricle with hypertrophy of the left ventricle. Left atrium enlarged. Right ventricular cavity normal. Right atrium normal. CONCLUSION: Hypertrophy of the left ventricle. Left atrial enlargement, ejection fraction 50%. Doppler study shows mild mitral regurgitation, mild tricuspid regurgitation, mild pulmonary regurgitation, right ventricular systolic pressure of 47 mmHg with mild pulmonary hypertension. CONCLUSION: Hypertrophy of the left ventricle. Left atrial enlargement, ejection fraction 50%, mild mitral regurgitation, mild tricuspid regurgitation, mild pulmonary regurgitation, mild pulmonary hypertension. [facility]# [id number]
[2018-05-12] MEDS: Azithromycin 500 MG in Sodium Chloride 0.9% 250 ML IV SCH (21:30)
[2018-05-13 06:14] LABS: HEMATOCRIT 24.9 % (41.0-60); HEMOGLOBIN 8.2 gm/dL (12-16); MEAN CELL VOLUME 96.3 fl (80-99); MEAN CORPUSCULAR HEMOGLOBIN 31.8 pg (26.0-30.0); PLATELET COUNT 174 Th/cmm (150-400); RED BLOOD COUNT 2.59 Mil/cmm (4.30-5.70); RED CELL DISTRIBUTION WIDTH 15.6 % (11.5-20.0); WHITE BLOOD COUNT 5.6 Th/cmm (4.8-10.8)
[2018-05-13 06:24] LABS: ANION GAP 14.5 (7.0-16.0); CALCIUM SERUM 9.1 mg/dL (8.6-10.3); CARBON DIOXIDE 29.8 mEq/L (21.0-31.0); GFR AFRICAN-AMERICAN 14.1 ml/min (>90); GFR NON AFRICAN-AMERICAN 11.7 ml/min; POTASSIUM SERUM 4.3 mEq/L (3.5-5.1)
[2018-05-13] MEDS: INSULIN ASPART SLIDING SCALE 100 UNITS/ML UNIT SUBQ SCH (06:40)
[2018-05-13 06:50] LABS: CREATININE - SERUM 5.4 mg/dL (0.7-1.3)
[2018-05-13] MEDS: Albuterol/Ipratropium Neb 3 ML AERS HHN SCH ×2 (07:04→13:23)
[2018-05-13 07:16] LABS: BAND NEUTROPHILE 0 % (0-10); BASOPHIL 0 % (0-3); EOSINOPHIL 20 % (0-5); LYMPHOCYTE 26 % (20-50); MONOCYTE 8 % (2-10); NEUTROPHILS 46 % (40-80)
[2018-05-13] MEDS: Aspirin 81mg Chewable Tab PO SCH (08:29)
[2018-05-13] MEDS: Vitamin B Complex w/Vitamin C Tab PO SCH (08:30)
[2018-05-13] MEDS: Promethazine DM 6.25/15mg-5mL 5 ML SYR PO SCH (08:30)
--- NOTE | 2018-05-13 08:46 | Diagnostic Imaging Report ---
CHEST X-RAY: AP view INDICATION: Shortness of breath COMPARISON: 05/11/2018 FINDINGS: Right dialysis catheter is stable. Congestive changes are seen with bilateral fusions and bibasal infiltrates. Cardiomegaly is noted with atherosclerosis. IMPRESSION: No significant change in pulmonary status.
--- NOTE | 2018-05-13 09:29 | General Progress Note ---
Subjective - Review of Systems Service Date: 05/13/18 Subjective: pt feeling ok Objective - Results Result Diagrams: 05/13/18 05:49 05/13/18 05:49 Recent Labs: Laboratory Last Values WBC 5.6 Th/cmm (4.8-10.8) 05/13/18 05:49 RBC 2.59 Mil/cmm (4.30-5.70) L 05/13/18 05:49 Hgb 8.2 gm/dL (12-16) L 05/13/18 05:49 Hct 24.9 % (41.0-60) L 05/13/18 05:49 MCV 96.3 fl (80-99) 05/13/18 05:49 MCH 31.8 pg (26.0-30.0) H 05/13/18 05:49 MCHC Differential 33.0 pg (28.0-36.0) 05/13/18 05:49 RDW 15.6 % (11.5-20.0) 05/13/18 05:49 Plt Count 174 Th/cmm (150-400) 05/13/18 05:49 MPV 10.0 fl 05/13/18 05:49 Add Manual Diff YES 05/13/18 05:49 Neutrophils % 55.6 % (40.0-80.0) 05/12/18 09:06 Band Neutrophils % 0 % (0-10) 05/13/18 05:49 Lymphocytes % 19.6 % (20.0-50.0) L 05/12/18 09:06 Monocytes % 9.1 % (2.0-10.0) 05/12/18 09:06 Eosinophils % 15.0 % (0.0-5.0) H 05/12/18 09:06 Basophils % 0.7 % (0.0-2.0) 05/12/18 09:06 Neutrophils (Manual) 46 % (40-80) 05/13/18 05:49 Lymphocytes 26 % (20-50) 05/13/18 05:49 Monocytes 8 % (2-10) 05/13/18 05:49 Eosinophils 20 % (0-5) H 05/13/18 05:49 Basophils 0 % (0-3) 05/13/18 05:49 PT 10.3 SECONDS (9.5-11.5) 05/09/18 22:40 INR 0.99 (0.5-1.4) 05/09/18 22:40 PTT (Actin FS) 34.8 SECONDS (26.0-38.0) 05/09/18 22:40 Specimen Source ARTERIAL 05/09/18 23:01 Sample Site Right Radial 05/09/18 23:01 pH 7.42 (7.35-7.45) 05/09/18 23:01 pCO2 43.0 mmHg (35.0-45.0) 05/09/18 23:01 pO2 62.0 mmHg (80.0-100.0) L 05/09/18 23:01 HCO3 27.1 mEq/L (20.0-26.0) H 05/09/18 23:01 Base Excess 3.0 mEq/L (-3.0-3.0) 05/09/18 23:01 O2 Saturation 92.0 % (92.0-100.0) 05/09/18 23:01 Dago Test Positive 05/09/18 23:01 Vent Rate N/A 05/09/18 23:01 Inspired O2 21 05/09/18 23:01 Tidal Volume N/A 05/09/18 23:01 PEEP N/A 05/09/18 23:01 Pressure (ins/psv/peep) N/A 05/09/18 23:01 Critical Value MM,DITCH DIGGER 05/09/18 23:01 Sodium 138 mEq/L (136-145) 05/13/18 05:49 Potassium 4.3 mEq/L (3.5-5.1) 05/13/18 05:49 Chloride 98 mEq/L (98-107) 05/13/18 05:49 Carbon Dioxide 29.8 mEq/L (21.0-31.0) 05/13/18 05:49 Anion Gap 14.5 (7.0-16.0) 05/13/18 05:49 BUN 26 mg/dL (7-25) H 05/13/18 05:49 Creatinine 5.4 mg/dL (0.7-1.3) H* 05/13/18 05:49 Est GFR ( Amer) 14.1 ml/min (>90) 05/13/18 05:49 Est GFR (Non-Af Amer) 11.7 ml/min 05/13/18 05:49 BUN/Creatinine Ratio 4.8 05/13/18 05:49 Glucose 95 mg/dL (70-105) 05/13/18 05:49 POC Glucose 93 MG/DL (70 - 105) 05/13/18 06:31 Calcium 9.1 mg/dL (8.6-10.3) 05/13/18 05:49 Total Bilirubin 0.5 mg/dL (0.3-1.0) 05/11/18 05:24 AST 12 U/L (13-39) L 05/11/18 05:24 ALT 10 U/L (7-52) 05/11/18 05:24 Alkaline Phosphatase 75 U/L (34-104) 05/11/18 05:24 Troponin I 0.59 ng/mL (0.01-0.05) H* D 05/11/18 05:24 B-Natriuretic Peptide 4390.0 pg/mL (5.0-100.0) H 05/09/18 22:40 Total Protein 7.1 gm/dL (6.0-8.3) 05/11/18 05:24 Albumin 3.7 gm/dL (4.2-5.5) L 05/11/18 05:24 Globulin 3.4 gm/dL 05/11/18 05:24 Albumin/Globulin Ratio 1.1 (1.0-1.8) 05/11/18 05:24 - Physical Exam Vitals and I&O: Vital Signs Temp 98.5 F 05/13/18 07:33 Pulse 69 05/13/18 08:31 Resp 18 05/13/18 07:33 BP 127/70 05/13/18 08:31 Pulse Ox 98 05/13/18 07:33 Intake & Output 05/12/18 05/13/18 05/13/18 18:59 06:59 18:59 Intake Total 400 650 Output Total 2600 Balance -2200 650 Weight (lbs) 60.328 kg 59.103 kg Intake: Intake, IV Amount 250 Azithromycin 500 mg In 250 Sodium Chloride 0.9% 250 ml @ 250 mls/hr IV HS [facility] Rx#:[id number] Oral 400 400 Output: Hemodialysis 2600 Other: # Voids 1 1 # Bowel Movements 0 Weight Source Bedscale Bedscale Active Medications: Current Medications Acetaminophen (Tylenol) 650 mg PO Q4H PRN PRN Reason: Pain (Mild) Stop: 07/09/18 12:21 Last Admin: 05/11/18 09:10 Dose: 650 mg Acetaminophen/Hydrocodone Bitart ([place] 5mg/325mg) 1 tab PO Q6H PRN PRN Reason: Pain (Severe) Stop: 07/10/18 11:55 Last Admin: 05/12/18 20:48 Dose: 1 tab Albuterol/Ipratropium (Duoneb Neb) 3 ml HHN [id number] [facility] Stop: 07/09/18 18:59 Last Admin: 05/13/18 07:04 Dose: 3 ml Amlodipine Besylate (Norvasc) 10 mg PO DAILY [facility] Stop: 07/10/18 08:59 Last Admin: 05/13/18 08:30 Dose: 10 mg Artificial Tears (Artificial Tears Ophth Soln) 1 drop EACH EYE Q4H PRN PRN Reason: Dry Eye Stop: 07/10/18 00:17 Aspirin (Aspirin Chewable) 81 mg PO DAILY [facility] Stop: 07/10/18 08:59 Last Admin: 05/13/18 08:29 Dose: 81 mg Calcium Acetate (Phoslo) 667 mg PO TID [facility] Stop: 07/09/18 13:59 Last Admin: 05/13/18 08:30 Dose: 667 mg Epoetin Leopoldo (Epogen) 10,000 units SUBQ MWF@1500 [facility] Stop: 07/12/18 14:59 Famotidine (Pepcid) 20 mg PO DAILY [facility] Stop: 07/10/18 08:59 Last Admin: 05/13/18 08:29 Dose: 20 mg Fluticasone Propionate (Flonase) 1 spr NS BID PRN PRN Reason: allergic rhinitis Stop: 07/09/18 12:18 Gabapentin (Neurontin) 300 mg PO TID [facility] Stop: 07/09/18 13:59 Last Admin: 05/13/18 08:29 Dose: 300 mg Hydralazine HCl (Apresoline) 25 mg PO DAILY [facility] Stop: 07/10/18 08:59 Last Admin: 05/13/18 08:30 Dose: 25 mg Azithromycin 500 mg/ Sodium (Chloride) 250 mls @ 250 mls/hr IV HS [facility] Stop: 07/09/18 01:59 Last Infusion: 05/12/18 22:30 Dose: Infused Ceftriaxone Sodium 1 gm/ (Sodium Chloride) 50 mls @ 100 mls/hr IV Q24HR [facility] Stop: 07/10/18 15:59 Last Admin: 05/12/18 17:04 Dose: 100 mls/hr Insulin Aspart (Novolog Insulin Sliding Scale) 0 units SUBQ BIDAC@0600,1700 [facility] ; Protocol Stop: 07/10/18 08:59 Last Admin: 05/13/18 06:40 Dose: Not Given Latanoprost (Xalatan 0.005% Oph Soln) 1 drop EACH EYE [facility] Stop: 07/10/18 20:59 Last Admin: 05/12/18 20:49 Dose: 1 drop Metoprolol Tartrate (Lopressor) 25 mg PO BID [facility] Stop: 07/09/18 16:59 Last Admin: 05/13/18 08:31 Dose: 25 mg Miscellaneous (Clinical Monitoring) 1 ea MC PRN PRN PRN Reason: RENAL Stop: 07/12/18 08:59 Nitroglycerin (Nitrostat) 0.4 mg SL UD PRN PRN Reason: Chest Pain Stop: 07/09/18 12:18 Promethazine HCl/Dextromethorphan (Phenergan Dm 6.25/15mg-5 Ml) 10 ml PO TID [facility] Stop: 05/15/18 09:14 Last Admin: 05/13/18 08:30 Dose: 10 ml Simvastatin (Zocor) 20 mg PO [facility]; Protocol Stop: 07/09/18 20:59 Last Admin: 05/12/18 20:49 Dose: 20 mg Vitamin B Complex/Vit C/Folic Acid (Vitamin B Complex W/Vitamin C) 1 tab PO DAILY [facility] Stop: 07/10/18 08:59 Last Admin: 05/13/18 08:30 Dose: 1 tab General: Alert, Oriented x3 HEENT: Atraumatic, PERRLA Neck: Supple Cardiovascular: Regular rate, Normal S1, Normal S2 Lungs: Other Abdomen: Bowel sounds, Soft Extremities: no Clubbing, no Cyanosis, no Edema, no Pulses, no Tender, no Other Assessment/Plan - Assessment Assessment: shortness of breath ESRD volume over load HTN DM type 2 Anemia - Plan Plan: plan for HD Nutritional Asmnt/Malnutr-PDOC - Dietary Evaluation Malnutrition Findings (Please click <Entered> for more info): Nutritional Asmnt/Malnutrition Start: 05/11/18 14: 11 Text: Status: Complete Freq: Protocol: Document 05/11/18 14:11 ADITYA (Rec: 05/11/18 14:40 [id number]) Nutritional Asmnt/Malnutrition Patient General Information Nutritional Screening High Risk Consult Diagnosis PNA, bilateral Pertinent Medical Hx/Surgical Hx HTn, DM, ESRD, CABG, L foot amputation, right BKA Subjective Information Consult received for elevated glucose level. Pt seen lying in bed, alert, on oxygen. Pt speaks Cambodian, some Chinese. Pt stated he prefer small meals, the lunch portion was too much for him. Explained pt needs more protein d/t on dialysis. Offered Nepro to pt for extra kcal/protein, pt accepted. per EMR, PO itnake 50-75%. Current Diet Order/ Nutrition Support low sodium, Renal, CCHO Pertinent Medications novolog, vitamin B complex/vit C/folic acid Pertinent Labs 05/11 BUN 34, Cr 6.5, glucose 112 05/10 Na 132, Cl 95, BUN 71, Cr 10.1, glucose 135, POC 165- 226 Nutritional Hx/Data Height 1.65 m Height (Calculated Centimeters) 165.1 Current Weight (lbs) 59.421 kg Weight (Calculated Kilograms) 59.4 Weight (Calculated Grams) 49004.6 [place] Body Weight 131 Body Mass Index (BMI) 21.8 Weight Status Approriate GI Symptoms GI Symptoms None Last BM none Difficult in: None Skin Integrity/Comment: intact Current %PO Fair (50-74%) Estimated Nutritional Goals BEE in Kcals: Using Current wt Calories/Kcals/Kg 30-35 Kcals Calculated 5905-4867 Protein: Using Current wt Protein g/k.2-1.4 Protein Calculated 72-84 Fluid: ml per MD Nutritional Problem 1. Problem Problem increased nutrition needs ( calorie and protein) Etiology ESRD Signs/Symptoms: pt on hemodialysis Malnutrition Alert Is there a minimum of two criteria No selected? Query Text:Check all the applicable criteria. A minimum of two criteria are recommended for diagnosis of either severe or non-severe malnutrition. Intervention/Recommendation Comments 1. Continue with renal and CCHO diet as ordered. Diet profile updated. 2. Add Nepro TID for extra kcal and protein. 3. Monitor PO intake, wt, labs and skin integrity 4. F/U as high risk in 2-3 days, 05/13-05/14 Expected Outcomes/Goals Expected Outcomes/Goals 1. PO intake to meet at least 75% of nutritional needs with oral diet and supplement. 2. Wt stability, skin to remain intact, labs to approach WNL.
--- NOTE | 2018-05-13 11:29 | Internal Medicine Prog Note ---
Internal Medicine Subjective - Subjective Patient seen and examined:: other (awake alert, admitted with pneumonia ) Patient is:: awake, in bed Patient Complaints of:: congestion, cough Per staff patient has:: tolerating meds Internal Medicine Objective - Results Result Diagrams: 05/13/18 05:49 05/13/18 05:49 Recent Labs: Laboratory Last Values WBC 5.6 Th/cmm (4.8-10.8) 05/13/18 05:49 RBC 2.59 Mil/cmm (4.30-5.70) L 05/13/18 05:49 Hgb 8.2 gm/dL (12-16) L 05/13/18 05:49 Hct 24.9 % (41.0-60) L 05/13/18 05:49 MCV 96.3 fl (80-99) 05/13/18 05:49 MCH 31.8 pg (26.0-30.0) H 05/13/18 05:49 MCHC Differential 33.0 pg (28.0-36.0) 05/13/18 05:49 RDW 15.6 % (11.5-20.0) 05/13/18 05:49 Plt Count 174 Th/cmm (150-400) 05/13/18 05:49 MPV 10.0 fl 05/13/18 05:49 Add Manual Diff YES 05/13/18 05:49 Neutrophils % 55.6 % (40.0-80.0) 05/12/18 09:06 Band Neutrophils % 0 % (0-10) 05/13/18 05:49 Lymphocytes % 19.6 % (20.0-50.0) L 05/12/18 09:06 Monocytes % 9.1 % (2.0-10.0) 05/12/18 09:06 Eosinophils % 15.0 % (0.0-5.0) H 05/12/18 09:06 Basophils % 0.7 % (0.0-2.0) 05/12/18 09:06 Neutrophils (Manual) 46 % (40-80) 05/13/18 05:49 Lymphocytes 26 % (20-50) 05/13/18 05:49 Monocytes 8 % (2-10) 05/13/18 05:49 Eosinophils 20 % (0-5) H 05/13/18 05:49 Basophils 0 % (0-3) 05/13/18 05:49 PT 10.3 SECONDS (9.5-11.5) 05/09/18 22:40 INR 0.99 (0.5-1.4) 05/09/18 22:40 PTT (Actin FS) 34.8 SECONDS (26.0-38.0) 05/09/18 22:40 Specimen Source ARTERIAL 05/09/18 23:01 Sample Site Right Radial 05/09/18 23:01 pH 7.42 (7.35-7.45) 05/09/18 23:01 pCO2 43.0 mmHg (35.0-45.0) 05/09/18 23:01 pO2 62.0 mmHg (80.0-100.0) L 05/09/18 23:01 HCO3 27.1 mEq/L (20.0-26.0) H 05/09/18 23:01 Base Excess 3.0 mEq/L (-3.0-3.0) 05/09/18 23:01 O2 Saturation 92.0 % (92.0-100.0) 05/09/18 23:01 Dago Test Positive 05/09/18 23:01 Vent Rate N/A 05/09/18 23:01 Inspired O2 21 05/09/18 23:01 Tidal Volume N/A 05/09/18 23:01 PEEP N/A 05/09/18 23:01 Pressure (ins/psv/peep) N/A 05/09/18 23:01 Critical Value MM,SECURITY GUARDS DISPATCHER 05/09/18 23:01 Sodium 138 mEq/L (136-145) 05/13/18 05:49 Potassium 4.3 mEq/L (3.5-5.1) 05/13/18 05:49 Chloride 98 mEq/L (98-107) 05/13/18 05:49 Carbon Dioxide 29.8 mEq/L (21.0-31.0) 05/13/18 05:49 Anion Gap 14.5 (7.0-16.0) 05/13/18 05:49 BUN 26 mg/dL (7-25) H 05/13/18 05:49 Creatinine 5.4 mg/dL (0.7-1.3) H* 05/13/18 05:49 Est GFR ( Amer) 14.1 ml/min (>90) 05/13/18 05:49 Est GFR (Non-Af Amer) 11.7 ml/min 05/13/18 05:49 BUN/Creatinine Ratio 4.8 05/13/18 05:49 Glucose 95 mg/dL (70-105) 05/13/18 05:49 POC Glucose 93 MG/DL (70 - 105) 05/13/18 06:31 Calcium 9.1 mg/dL (8.6-10.3) 05/13/18 05:49 Total Bilirubin 0.5 mg/dL (0.3-1.0) 05/11/18 05:24 AST 12 U/L (13-39) L 05/11/18 05:24 ALT 10 U/L (7-52) 05/11/18 05:24 Alkaline Phosphatase 75 U/L (34-104) 05/11/18 05:24 Troponin I 0.59 ng/mL (0.01-0.05) H* D 05/11/18 05:24 B-Natriuretic Peptide 4390.0 pg/mL (5.0-100.0) H 05/09/18 22:40 Total Protein 7.1 gm/dL (6.0-8.3) 05/11/18 05:24 Albumin 3.7 gm/dL (4.2-5.5) L 05/11/18 05:24 Globulin 3.4 gm/dL 05/11/18 05:24 Albumin/Globulin Ratio 1.1 (1.0-1.8) 05/11/18 05:24 - Physical Exam Vitals and I&O: Vital Signs Temp 98.5 F 05/13/18 07:33 Pulse 69 05/13/18 08:31 Resp 18 05/13/18 07:33 BP 127/70 05/13/18 08:31 Pulse Ox 98 05/13/18 07:33 Intake & Output 05/12/18 05/13/18 05/13/18 18:59 06:59 18:59 Intake Total 400 650 Output Total 2600 Balance -2200 650 Weight (lbs) 60.328 kg 59.103 kg Intake: Intake, IV Amount 250 Azithromycin 500 mg In 250 Sodium Chloride 0.9% 250 ml @ 250 mls/hr IV HS [facility] Rx#:[id number] Oral 400 400 Output: Hemodialysis 2600 Other: # Voids 1 1 # Bowel Movements 0 Weight Source Bedscale Bedscale Active Medications: Current Medications Acetaminophen (Tylenol) 650 mg PO Q4H PRN PRN Reason: Pain (Mild) Stop: 07/09/18 12:21 Last Admin: 05/11/18 09:10 Dose: 650 mg Acetaminophen/Hydrocodone Bitart ([place] 5mg/325mg) 1 tab PO Q6H PRN PRN Reason: Pain (Severe) Stop: 07/10/18 11:55 Last Admin: 05/12/18 20:48 Dose: 1 tab Albuterol/Ipratropium (Duoneb Neb) 3 ml HHN [id number] [facility] Stop: 07/09/18 18:59 Last Admin: 05/13/18 07:04 Dose: 3 ml Amlodipine Besylate (Norvasc) 10 mg PO DAILY [facility] Stop: 07/10/18 08:59 Last Admin: 05/13/18 08:30 Dose: 10 mg Artificial Tears (Artificial Tears Ophth Soln) 1 drop EACH EYE Q4H PRN PRN Reason: Dry Eye Stop: 07/10/18 00:17 Aspirin (Aspirin Chewable) 81 mg PO DAILY [facility] Stop: 07/10/18 08:59 Last Admin: 05/13/18 08:29 Dose: 81 mg Calcium Acetate (Phoslo) 667 mg PO TID [facility] Stop: 07/09/18 13:59 Last Admin: 05/13/18 08:30 Dose: 667 mg Epoetin Leopoldo (Epogen) 10,000 units SUBQ MWF@1500 [facility] Stop: 07/12/18 14:59 Famotidine (Pepcid) 20 mg PO DAILY [facility] Stop: 07/10/18 08:59 Last Admin: 05/13/18 08:29 Dose: 20 mg Fluticasone Propionate (Flonase) 1 spr NS BID PRN PRN Reason: allergic rhinitis Stop: 07/09/18 12:18 Gabapentin (Neurontin) 300 mg PO TID [facility] Stop: 07/09/18 13:59 Last Admin: 05/13/18 08:29 Dose: 300 mg Hydralazine HCl (Apresoline) 25 mg PO DAILY [facility] Stop: 07/10/18 08:59 Last Admin: 05/13/18 08:30 Dose: 25 mg Azithromycin 500 mg/ Sodium (Chloride) 250 mls @ 250 mls/hr IV [facility] Stop: 07/09/18 01:59 Last Infusion: 05/12/18 22:30 Dose: Infused Ceftriaxone Sodium 1 gm/ (Sodium Chloride) 50 mls @ 100 mls/hr IV Q24HR [facility] Stop: 07/10/18 15:59 Last Admin: 05/12/18 17:04 Dose: 100 mls/hr Insulin Aspart (Novolog Insulin Sliding Scale) 0 units SUBQ BIDAC@0600,1700 [facility] ; Protocol Stop: 07/10/18 08:59 Last Admin: 05/13/18 06:40 Dose: Not Given Latanoprost (Xalatan 0.005% [facility]) 1 drop EACH EYE [facility] Stop: 07/10/18 20:59 Last Admin: 05/12/18 20:49 Dose: 1 drop Metoprolol Tartrate (Lopressor) 25 mg PO BID [facility] Stop: 07/09/18 16:59 Last Admin: 05/13/18 08:31 Dose: 25 mg Miscellaneous (Clinical Monitoring) 1 ea MC PRN PRN PRN Reason: RENAL Stop: 07/12/18 08:59 Nitroglycerin (Nitrostat) 0.4 mg SL UD PRN PRN Reason: Chest Pain Stop: 07/09/18 12:18 Promethazine HCl/Dextromethorphan (Phenergan Dm 6.25/15mg-5 Ml) 10 ml PO TID [facility] Stop: 05/15/18 09:14 Last Admin: 05/13/18 08:30 Dose: 10 ml Simvastatin (Zocor) 20 mg PO [facility]; Protocol Stop: 07/09/18 20:59 Last Admin: 05/12/18 20:49 Dose: 20 mg Vitamin B Complex/Vit C/Folic Acid (Vitamin B Complex W/Vitamin C) 1 tab PO DAILY [facility] Stop: 07/10/18 08:59 Last Admin: 05/13/18 08:30 Dose: 1 tab General: weak HEENT: NC/AT Neck: Supple Lungs: congested, no CTAB Cardiovascular: Normal S1, Normal S2 Abdomen: soft, non-tender Extremities: clear, edema Neurological: no change Internal Medicine Assmt/Plan - Assessment Assessment: pneumonia HTN DM ESRD - Plan Plan: as per order sheet antibiotics breathing treatment labs will monitor Nutritional Asmnt/Malnutr-PDOC - Dietary Evaluation Malnutrition Findings (Please click <Entered> for more info): Nutritional Asmnt/Malnutrition Start: 05/11/18 14: 11 Text: Status: Complete Freq: Protocol: Document 05/11/18 14:11 LCHENG (Rec: 05/11/18 14:40 [id number]) Nutritional Asmnt/Malnutrition Patient General Information Nutritional Screening High Risk Consult Diagnosis PNA, bilateral Pertinent Medical Hx/Surgical Hx HTn, DM, ESRD, CABG, L foot amputation, right BKA Subjective Information Consult received for elevated glucose level. Pt seen lying in bed, alert, on oxygen. Pt speaks Burmese, some Latvian. Pt stated he prefer small meals, the lunch portion was too much for him. Explained pt needs more protein d/t on dialysis. Offered Nepro to pt for extra kcal/protein, pt accepted. per EMR, PO itnake 50-75%. Current Diet Order/ Nutrition Support low sodium, Renal, CCHO Pertinent Medications novolog, vitamin B complex/vit C/folic acid Pertinent Labs 05/11 BUN 34, Cr 6.5, glucose 112 05/10 Na 132, Cl 95, BUN 71, Cr 10.1, glucose 135, POC 165- 226 Nutritional Hx/Data Height 1.65 m Height (Calculated Centimeters) 165.1 Current Weight (lbs) 59.421 kg Weight (Calculated Kilograms) 59.4 Weight (Calculated Grams) 49827.6 [place] Body Weight 131 Body Mass Index (BMI) 21.8 Weight Status Approriate GI Symptoms GI Symptoms None Last BM none Difficult in: None Skin Integrity/Comment: intact Current %PO Fair (50-74%) Estimated Nutritional Goals BEE in Kcals: Using Current wt Calories/Kcals/Kg 30-35 Kcals Calculated 9714-2398 Protein: Using Current wt Protein g/k.2-1.4 Protein Calculated 72-84 Fluid: ml per MD Nutritional Problem 1. Problem Problem increased nutrition needs ( calorie and protein) Etiology ESRD Signs/Symptoms: pt on hemodialysis Malnutrition Alert Is there a minimum of two criteria No selected? Query Text:Check all the applicable criteria. A minimum of two criteria are recommended for diagnosis of either severe or non-severe malnutrition. Intervention/Recommendation Comments 1. Continue with renal and CCHO diet as ordered. Diet profile updated. 2. Add Nepro TID for extra kcal and protein. 3. Monitor PO intake, wt, labs and skin integrity 4. F/U as high risk in 2-3 days, 05/13-05/14 Expected Outcomes/Goals Expected Outcomes/Goals 1. PO intake to meet at least 75% of nutritional needs with oral diet and supplement. 2. Wt stability, skin to remain intact, labs to approach WNL.
[2018-05-13] MEDS ORDERED: Epoetin Alfa 20000 Units/mL Vial SUBQ SCH (15:00)
--- NOTE | 2018-05-14 09:28 | Progress Notes ---
DATE: 05/13/2018 SUBJECTIVE: This 58-year-old male patient has no complaint, no shortness of breath, no chest pain. The patient had dialysis. At this time, the patient was on antibiotic. The patient had echocardiogram with failed left ventricular hypertrophy, left atrial enlargement, mild mitral regurgitation, mild tricuspid regurgitation, mild pulmonary regurgitation, mild pulmonary hypertension. The patient also has mild ejection fraction 50%. The patient had dialysis. PHYSICAL EXAMINATION: VITAL SIGNS: Blood pressure 130/80, pulse 70, respirations 28. LUNGS: Clear. HEART: Regular rhythm, S1, S2, soft S3, S4. ABDOMEN: Soft. EXTREMITIES: No pedal edema. DISCHARGE DIAGNOSES: Bilateral pneumonia, resolved; hepatitis B; diabetes mellitus type 2; diabetic chronic kidney disease, stage V; end-stage renal disease, on dialysis; hypertension; and iron deficiency anemia. The patient will be followed as an outpatient by sole sewer hand. JOB# [id number]
== END 2018-05-13 13:50 | DRG 139 ==
LOC: ER 22:15 → MSI 05-10 00:05
PROVIDERS: ADMIT Internal Medicine; ATTEND Internal Medicine
PROC: 5A1D70Z Performance of Urinary Filtration, Intermittent, Less than 6 Hours Per Day (ICD-10-PCS; principal; 2018-05-10)
PROC: 5A1D70Z Performance of Urinary Filtration, Intermittent, Less than 6 Hours Per Day (ICD-10-PCS; 2018-05-12)
DX: J18.9 Pneumonia, unspecified organism (principal); J81.1 Chronic pulmonary edema; E11.22 Type 2 diabetes mellitus with diabetic chronic kidney disease; J90 Pleural effusion, not elsewhere classified; B19.10 Unspecified viral hepatitis B without hepatic coma; E11.40 Type 2 diabetes mellitus with diabetic neuropathy, unspecified; E87.70 Fluid overload, unspecified; I13.11 Hypertensive heart and chronic kidney disease without heart failure, with stage 5 chronic kidney disease, or end stage renal disease; N18.6 End stage renal disease; Z99.2 Dependence on renal dialysis; D50.9 Iron deficiency anemia, unspecified; I25.10 Atherosclerotic heart disease of native coronary artery without angina pectoris; E11.51 Type 2 diabetes mellitus with diabetic peripheral angiopathy without gangrene; I27.20 Pulmonary hypertension, unspecified; I08.1 Rheumatic disorders of both mitral and tricuspid valves; Z95.0 Presence of cardiac pacemaker; Z79.82 Long term (current) use of aspirin; Z79.4 Long term (current) use of insulin; Z89.611 Acquired absence of right leg above knee; Z89.432 Acquired absence of left foot
CPT/HCPCS: 36415-UA; 36600-90; 71045-TC; 80048-TC; 80053-TC; 82803-TC; 82948-90; 83036-90; 83880-TC; 84484-TC; 85007-TC; 85025-TC; 85610-TC; 85730-TC; 90937; 93005; 94640; 94760; J0456; J0696; J0885; J1815; J7030; J7042; Z7610